=== PATIENT | female | born 1990 | race Caucasian/White ===

== ENCOUNTER 2016-10-20 22:22 | Emergency (ER) | payer BC ==
[2016-10-20] MEDS ORDERED: KETOROLAC 30 MG/ML 1 ML VIAL IM STA (23:35)
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
[2016-10-21 00:54] VITALS: TEMP 98.7
[2016-10-21 01:17] VITALS: BP 103/68; PULSE 69; RESP 20
== END 2016-10-21 01:17 | disposition home or self-care (01) ==
LOC: EC 22:22
DX: R07.89 Other chest pain (principal); Z79.3 Long term (current) use of hormonal contraceptives; V86.59XA Driver of other special all-terrain or other off-road motor vehicle injured in nontraffic accident, initial encounter
CPT/HCPCS: 99284; 96372; 71020; 71120; J1885

== ENCOUNTER → 2018-01-10 | Outpatient (CLI) | payer BC ==
--- NOTE | 2018-01-10 17:29 | ECHOF ---
Referral Reason:R94.31 Abnormal EKG MEASUREMENTS -------- HEIGHT: 170.2 cm WEIGHT: 102.1 kg BP: RVIDd: 2.8 cm (< 3.3) IVSd: 1.0 cm (0.6 - 1.1) LVIDd: 4.4 cm (3.9 - 5.3) LVPWd: 1.0 cm (0.6 - 1.1) IVSs: 1.3 cm LVIDs: 3.4 cm LVPWs: 1.3 cm LAESV Index (A-L): 18.91 ml/m Ao Diam: 2.9 cm (2.0 - 3.7) AV Cusp: 1.8 cm (1.5 - 2.6) LA Diam: 2.7 cm (2.7 - 3.8) MV EXCURSION: 16.095 mm (> 18.000) MV EF SLOPE: 92 mm/s (70 - 150) EPSS: 0.9 cm MV E Jared: 0.91 m/s MV DecT: 211 ms MV A Jared: 0.71 m/s MV E/A Ratio: 1.27 FINDINGS -------- Sinus rhythm. This was a technically good study. The left ventricular size is normal. Left ventricular wall thickness is normal. Overall left vent ricular systolic function is normal with, an EF between 55 - 60 %. The right ventricle is normal in size and function. Normal LA size by volume 22+/-6 ml/m2. The right atrium is normal in size. The aortic valve is trileaflet, and appears structurally normal. No aortic stenosis or regurgitation. The mitral valve is normal. There is trace mitral regurgitation. Trace tricuspid regurgitation present. Right ventricular systolic pressure is normal at < 35 mmHg. There is no evidence of pulmonary hypertension. Trace/mild (physiologic) pulmonic regurgitation. The aortic root size is normal. Normal inferior vena cava with normal inspiratory collapse consistent with estimated right atrial pre ssure of 5 mmHg. There is no pericardial effusion. CONCLUSIONS -------- 1. Sinus rhythm. 2. This was a technically good study. 3. The left ventricular size is normal. 4. Left ventricular wall thickness is normal. 5. Overall left ventricular systolic function is normal with, an EF between 55 - 60 %. 6. Normal LA size by volume 22+/-6 ml/m2. 7. The aortic valve is trileaflet, and appears structurally normal. No aortic stenosis or regurgitati on. 8. There is trace mitral regurgitation. 9. Trace tricuspid regurgitation present. 10. Right ventricular systolic pressure is normal at < 35 mmHg. 11. There is no evidence of pulmonary hypertension. 12. Trace/mild (physiologic) pulmonic regurgitation. 13. The aortic root size is normal. 14. There is no pericardial effusion. ASSISTANT SCIENTIST: Justino Espinosa RDCS
== END | disposition home or self-care (01) ==
LOC: RADECHMAIN 13:12
PROVIDERS: ATTEND Family Medicine
DX: I37.1 Nonrheumatic pulmonary valve insufficiency (principal)
CPT/HCPCS: 93306

== ENCOUNTER 2018-05-26 04:36 | Emergency (ER) | payer BC ==
[2018-05-26 04:44] VITALS: BP 134/77; PULSE 142; RESP 24
[2018-05-26] MEDS: ACETAMINOPHEN TAB 500 MG TAB PO STA (05:20)
--- NOTE | 2018-05-26 05:57 | ED ---
URI HPI - General Chief Complaint: Upper Respiratory Infection Stated Complaint: Sore Throat, Headache Source: patient Mode of arrival: ambulatory Limitations: no limitations - History of Present Illness Initial Comments: Aye is a previously healthy 27-year-old female with history of wheezing for which she's been prescribed nebulized albuterol. Patient reports that she's fe lt some increased wheezing for the past 2 days however last night she developed fevers, chills shaking and just a general feeling like she been had by a truck. Patient was concerned she may have the flu skin the ER for further evaluation. Patient reports she didn't take any breathing treatments prior to arrival. She has not had any antipyretics prior to arrival. She did not receive a flu vacci ne this year. SHe has no known sick contacts but does have a 5-year-old daughter who attends school and does know that multiple people to school been sick her daughter's currently not having any symptoms. - Related Data Home Medications Medication Instructions Recorded Confirmed Ibuprofen [Motrin Ib] 400 - 600 mg PO Q6H PRN 05/26/18 05/26/18 Norethindrone-E.estradiol-Iron 1 tab PO DAILY 05/26/18 05/26/18 [Junel Fe 1.5 mg-30 Mcg Tablet] Allergies Allergy/AdvReac Type Severity Reaction Status Date / Time No Known Allergies Allergy Verified 05/26/18 07:07 Review of Systems ROS Statement: Those systems with pertinent positive or pertinent negative responses have been documented in the HPI. ROS Other: All systems not noted in ROS Statement are negative. Past Medical History Past Medical History: No Reported History History of Any Multi-Drug Resistant Organisms: None Reported Past Surgical History: No Surgical Hx Reported Past Psychological History: No Psychological Hx Reported Smoking Status: Current some day smoker Past Alcohol Use History: None Reported Past Drug Use History: None Reported General Exam - General Exam Comments Initial Comments: Physical Exam GENERAL: Patient is febrile, nontoxic but appears as though she's not feeling well HENT: Normocephalic, Atraumatic. EYES: PERRL, EOMI PULMONARY: Expiratory wheezing in all lung whiting CARDIOVASCULAR: Tachycardic, regular, warm and well perfused extremities ABDOMEN: Soft and nontender with normal bowel sounds. SKIN: Clammy and warm to the touch : Deferred NEUROLOGIC: Patient is alert and oriented x3. Moving all extremities spontaneously MUSCULOSKELETAL: Normal extremities with adequate strength and full range of motion. No lower extremity swelling or edema. No calf tenderness. PSYCHIATRIC: Normal psychiatric evaluation. Limitations: no limitations Limitations: no limitations Course Vital Signs 05/26/18 04:42 Temperature 102.6 F H Pulse Rate 142 H Respiratory 24 Rate Blood Pressure 134/77 O2 Sat by Pulse 95 Oximetry Medical Decision Making - Medical Decision Making She was seen and evaluated history is obtained from the patient History and physical exam are concerning for influenza Influenza swab was positive, labs and IV fluids were ordered due to the patient's febrile tachycardic - Lab Data Result diagrams: 05/26/18 06:02 05/26/18 06:02 Lab Results 05/26/18 05/26/18 05/26/18 Range/Units 05:16 06:02 06:02 WBC 11.2 H (3.8-10.6) k/uL RBC 4.80 (3.80-5.40) m/uL Hgb 12.9 (11.4-16.0) gm/dL Hct 39.2 (34.0-46.0) % MCV 81.6 (80.0-100.0) fL MCH 26.8 (25.0-35.0) pg MCHC 32.8 (31.0-37.0) g/dL RDW 14.2 (11.5-15.5) % Plt Count 256 (150-450) k/uL Neutrophils % 84 % Lymphocytes % 7 % Monocytes % 5 % Eosinophils % 2 % Basophils % 0 % Neutrophils # 9.4 H (1.3-7.7) k/uL Lymphocytes # 0.8 L (1.0-4.8) k/uL Monocytes # 0.6 (0-1.0) k/uL Eosinophils # 0.2 (0-0.7) k/uL Basophils # 0.0 (0-0.2) k/uL Sodium 138 (137-145) mmol/L Potassium 4.2 (3.5-5.1) mmol/L Chloride 109 H (98-107) mmol/L Carbon Dioxide 20 L (22-30) mmol/L Anion Gap 9 mmol/L BUN 11 (7-17) mg/dL Creatinine 0.68 (0.52-1.04) mg/dL Est GFR (CKD-EPI)AfAm >90 (>60 ml/min/1.73 sqM) Est GFR (CKD-EPI)NonAf >90 (>60 ml/min/1.73 sqM) Glucose 100 H (74-99) mg/dL Calcium 8.8 (8.4-10.2) mg/dL Total Bilirubin 0.3 (0.2-1.3) mg/dL AST 18 (14-36) U/L ALT 28 (9-52) U/L Alkaline Phosphatase 79 (38-126) U/L Creatine Kinase 44 (30-135) U/L Total Protein 6.6 (6.3-8.2) g/dL Albumin 3.6 (3.5-5.0) g/dL Influenza Type A RNA Detected H (Not Detectd) Influenza Type B (PCR) Not Detected (Not Detectd) Disposition Clinical Impression: Influenza Disposition: HOME SELF-CARE Condition: Stable Instructions (If sedation given, give patient instructions): Upper Respiratory Infection (ED) Is patient prescribed a controlled substance at d/c from ED?: No Referrals: Armando Perdomo DO [Primary Care Provider] - 1-2 days
[2018-05-26] MEDS: SODIUM CHLORIDE 0.9% 2,000 ML IV ONE (06:01)
[2018-05-26 06:10] LABS: Basophils % (A) 0 %; Eosinophils # (A) 0.2 k/uL (0-0.7); Eosinophils % (A) 2 %; HCT 39.2 % (34.0-46.0); HGB 12.9 gm/dL (11.4-16.0); Lymphocytes # (A) 0.8 k/uL (1.0-4.8); Lymphocytes % (A) 7 %; MCH 26.8 pg (25.0-35.0); MCHC 32.8 g/dL (31.0-37.0); MCV 81.6 fL (80.0-100.0); Mean Platelet Volume 6.2; Monocytes # (A) 0.6 k/uL (0-1.0); Monocytes % (A) 5 %; Neutrophils # (A) 9.4 k/uL (1.3-7.7); Neutrophils % (A) 84 %; Platelet Count 256 k/uL (150-450); RDW 14.2 % (11.5-15.5); WBC 11.2 k/uL (3.8-10.6)
[2018-05-26 06:19] LABS: ALT 28 U/L (9-52); AST 18 U/L (14-36); Albumin 3.6 g/dL (3.5-5.0); Alkaline Phosphatase 79 U/L (38-126); Anion Gap 9 mmol/L; Blood Urea Nitrogen 11 mg/dL (7-17); Calcium 8.8 mg/dL (8.4-10.2); Carbon Dioxide 20 mmol/L (22-30); Chloride 109 mmol/L (98-107); Creatine Kinase 44 U/L (30-135); Glucose 100 mg/dL (74-99); Potassium 4.2 mmol/L (3.5-5.1); Sodium 138 mmol/L (137-145); Total Bilirubin 0.3 mg/dL (0.2-1.3); Total Protein 6.6 g/dL (6.3-8.2)
[2018-05-26] MEDS: IBUPROFEN 400 MG TAB PO STA (06:33)
[2018-05-26 08:17] VITALS: TEMP 98.9
== END 2018-05-26 08:16 | disposition home or self-care (01) ==
LOC: EC 04:36
DX: J11.1 Influenza due to unidentified influenza virus with other respiratory manifestations (principal); R00.0 Tachycardia, unspecified; F17.200 Nicotine dependence, unspecified, uncomplicated; Z79.3 Long term (current) use of hormonal contraceptives
CPT/HCPCS: 36415; 80053; 82550; 85025; 87502; 96360; 96361; 99284

== ENCOUNTER → 2019-12-11 | Outpatient (CLI) | payer BC ==
--- NOTE | 2019-12-11 15:20 | XR ---
EXAMINATION TYPE: XR chest 2V DATE OF EXAM: 12/11/2019 COMPARISON: 10/20/2016 TECHNIQUE: PA and lateral views submitted. HISTORY: Pain FINDINGS: Subsegmental changes are seen along the left lung base and costophrenic angle. Right lung is clear. H eart size normal. No pneumothorax. No overt failure. IMPRESSION: 1. Left lower lobe infiltrate.
== END | disposition home or self-care (01) ==
LOC: RADXRMAIN 14:58
PROVIDERS: ATTEND Family Medicine
DX: R91.8 Other nonspecific abnormal finding of lung field (principal)
CPT/HCPCS: 71046

== ENCOUNTER → 2019-12-13 | Outpatient (CLI) | payer BC | END | disposition home or self-care (01) | LOC: LABWHC1 10:34 | PROVIDERS: ATTEND Family Medicine | DX: Z20.828 Contact with and (suspected) exposure to other viral communicable diseases (principal); R05 Cough; R07.89 Other chest pain; R09.89 Other specified symptoms and signs involving the circulatory and respiratory systems | CPT/HCPCS: U0003; C9803 ==

== ENCOUNTER 2020-09-27 18:18 | Emergency (ER) | payer BC ==
[2020-09-27 18:22] VITALS: TEMP 98
--- NOTE | 2020-09-27 18:39 | ED ---
General Adult HPI - General Chief complaint: Abdominal Pain Stated complaint: Abd Pain Time Seen by Provider: 09/27/20 18:45 Source: patient Mode of arrival: ambulatory Limitations: no limitations - History of Present Illness Initial comments: Patient is a 29-year-old female with past medical history is unremarkable who presents emergency Department complaining of a two-week history of intermittent sharp, achy abdominal pain. She states it is over the right abdomen with radiation about like distribution towards her back. She denies any associated nausea or vomiting. Denies any change in her bowel movements or bowel habits. She states she still passing flatus. She denies any chest pain, shortness of breath, headache, weakness, numbness patulousness is no acute complaints at this time. She states that the abdominal pain is present when she is standing at work. It is not associated with any specific movements. It lasts for a short period time, and is minimally responsive to ibuprofen. She otherwise has no acute point to this time. - Related Data Home Medications Medication Instructions Recorded Confirmed Ibuprofen [Motrin Ib] 400 - 600 mg PO Q6H PRN 05/26/18 09/27/20 Norethindrone-E.estradiol-Iron 1 tab PO HS 05/26/18 09/27/20 [Junel Fe 1.5 mg-30 Mcg Tablet] Allergies Allergy/AdvReac Type Severity Reaction Status Date / Time No Known Allergies Allergy Verified 09/27/20 20:45 Review of Systems ROS Statement: Those systems with pertinent positive or pertinent negative responses have been documented in the HPI. Review of Systems: CONST: Denies fever EYES: Denies blurry vision ENT: Denies nasal congestion C/V: Denies Chest pain RESP: Denies shortness of breath GI: Endorses abdominal pain : Denies dysuria SKIN: Denies rash. MSK: Denies joint pain. NEURO: Denies headache ROS Other: All systems not noted in ROS Statement are negative. Past Medical History Past Medical History: No Reported History History of Any Multi-Drug Resistant Organisms: None Reported Past Surgical History: No Surgical Hx Reported Past Psychological History: No Psychological Hx Reported Smoking Status: Current some day smoker Past Alcohol Use History: Occasional Past Drug Use History: None Reported General Exam - General Exam Comments Initial Comments: General: Appears in no acute distress. HEAD: Normal with no signs of head trauma. EYES: PERRLA, EOMI, conjunctiva normal, no discharge. ENT: Hearing grossly intact, normal oropharynx. RESPIRATORY: Clear breath sounds bilaterally. No wheezes, rales, or rhonchi. C/V: Patient is tachycardic with regular rhythm. S1 and S2 auscultated. No peripheral edema. Peripheral pulses are 2+ intact throughout. Repeat heart rate is normal. Tachycardia resolved. ABD: Abdomen soft, nondistended, nontender to palpation. There is no guarding. There are no peritoneal signs. Patient currently has no tenderness at this time. Patient describes her abdominal pain as a pelvic distribution around to her lower lumbar spine. No CVA tenderness to percussion. EXT: Normal range of motion, no obvious deformity. She does have very mild midline lumbar spine tenderness to palpation. SKIN: No rashes or lesions observed on exposed skin. NEURO: Alert and oriented 4. Limitations: no limitations Course Vital Signs 09/27/20 09/27/20 09/27/20 18:19 19:10 21:38 Temperature 98 F Pulse Rate 120 H 104 H 87 Respiratory 20 16 16 Rate Blood Pressure 158/94 149/102 165/95 O2 Sat by Pulse 98 100 99 Oximetry Medical Decision Making - Medical Decision Making Based on the patient's presentation and physical exam, I'm concerned for acute abdominal process for current symptoms. Differential includes but is not limited to nephrolithiasis, lumbar spine injury, ovarian cyst, appendicitis. We will therefore obtain an abdominal laboratory studies as well as urine studies, assessed her , as well as obtain a CT and pelvis. She'll be symptomatically treated with 1 L fluid bolus. She Kleins pain medications at this time. She was in agreement with this plan. Patient's lab studies are remarkable for a contaminated urinalysis. Patient is not . The remainder of her laboratory studies are unremarkable. CT imaging revealed a normal lumbar spine, as well as a large cystic pelvic mass t hat is probably a complex ovarian cyst. On reevaluation, patient remains symptomatic. We discussed the findings of her imaging as well as her normal laboratory studies. I did recommend that she fol low up with PLATE GRAINER APPRENTICE for her complex ovarian cyst. She was in agreement with this plan. She has her own PLATE GRAINER APPRENTICE but she'll also be provided with contact information for the on-call PLATE GRAINER APPRENTICE. I instructed the patient to follow up with their PCP in the next 3 days. I provided contact information for follow up with Dr. Sammy MEJIA. I explained that the patient should return to the emergency department if they experience any worsening symptoms. Strict return precautions were discussed with the patient. The patient expressed understanding of these instructions. I answered all questions that the patient had. The patient was discharged home in good condition with their prescriptions and follow up information. - Lab Data Result diagrams: 09/27/20 19:08 09/27/20 19:08 Lab Results 09/27/20 09/27/20 09/27/20 Range/Units 19:08 19:08 19:08 WBC 9.3 (3.8-10.6) k/uL RBC 4.72 (3.80-5.40) m/uL Hgb 13.3 (11.4-16.0) gm/dL Hct 40.0 (34.0-46.0) % MCV 84.7 (80.0-100.0) fL MCH 28.3 (25.0-35.0) pg MCHC 33.4 (31.0-37.0) g/dL RDW 13.9 (11.5-15.5) % Plt Count 316 (150-450) k/uL MPV 6.9 Neutrophils % 72 % Lymphocytes % 18 % Monocytes % 5 % Eosinophils % 2 % Basophils % 1 % Neutrophils # 6.7 (1.3-7.7) k/uL Lymphocytes # 1.6 (1.0-4.8) k/uL Monocytes # 0.5 (0-1.0) k/uL Eosinophils # 0.2 (0-0.7) k/uL Basophils # 0.1 (0-0.2) k/uL PT 10.6 (9.0-12.0) sec INR 1.0 (<1.2) APTT 22.3 (22.0-30.0) sec Sodium (137-145) mmol/L Potassium (3.5-5.1) mmol/L Chloride (98-107) mmol/L Carbon Dioxide (22-30) mmol/L Anion Gap mmol/L BUN (7-17) mg/dL Creatinine (0.52-1.04) mg/dL Est GFR (CKD-EPI)AfAm (>60 ml/min/1.73 sqM) Est GFR (CKD-EPI)NonAf (>60 ml/min/1.73 sqM) Glucose (74-99) mg/dL Calcium (8.4-10.2) mg/dL Magnesium (1.6-2.3) mg/dL Total Bilirubin (0.2-1.3) mg/dL AST (14-36) U/L ALT (4-34) U/L Alkaline Phosphatase (38-126) U/L Total Protein (6.3-8.2) g/dL Albumin (3.5-5.0) g/dL Lipase (23-300) U/L Urine Color Yellow Urine Appearance Cloudy H (Clear) Urine pH 6.0 (5.0-8.0) Ur Specific Lyons 1.021 (1.001-1.035) Urine Protein Trace H (Negative) Urine Glucose (UA) Negative (Negative) Urine Ketones Negative (Negative) Urine Blood Negative (Negative) Urine Nitrite Negative (Negative) Urine Bilirubin Negative (Negative) Urine Urobilinogen <2.0 (<2.0) mg/dL Ur Leukocyte Esterase Large H (Negative) Urine RBC 3 (0-5) /hpf Urine WBC 25 H (0-5) /hpf Ur Squamous Epith Cells 12 H (0-4) /hpf Amorphous Sediment Rare H (None) /hpf Urine Bacteria Few H (None) /hpf Hyaline Casts 4 H (0-2) /lpf Urine Mucus Rare H (None) /hpf Urine HCG, Qual (Not Detectd) 09/27/20 09/27/20 Range/Units 19:08 19:08 WBC (3.8-10.6) k/uL RBC (3.80-5.40) m/uL Hgb (11.4-16.0) gm/dL Hct (34.0-46.0) % MCV (80.0-100.0) fL MCH (25.0-35.0) pg MCHC (31.0-37.0) g/dL RDW (11.5-15.5) % Plt Count (150-450) k/uL MPV Neutrophils % % Lymphocytes % % Monocytes % % Eosinophils % % Basophils % % Neutrophils # (1.3-7.7) k/uL Lymphocytes # (1.0-4.8) k/uL Monocytes # (0-1.0) k/uL Eosinophils # (0-0.7) k/uL Basophils # (0-0.2) k/uL PT (9.0-12.0) sec INR (<1.2) APTT (22.0-30.0) sec Sodium 141 (137-145) mmol/L Potassium 3.8 (3.5-5.1) mmol/L Chloride 109 H (98-107) mmol/L Carbon Dioxide 24 (22-30) mmol/L Anion Gap 8 mmol/L BUN 14 (7-17) mg/dL Creatinine 0.78 (0.52-1.04) mg/dL Est GFR (CKD-EPI)AfAm >90 (>60 ml/min/1.73 sqM) Est GFR (CKD-EPI)NonAf >90 (>60 ml/min/1.73 sqM) Glucose 105 H (74-99) mg/dL Calcium 9.5 (8.4-10.2) mg/dL Magnesium 1.9 (1.6-2.3) mg/dL Total Bilirubin 0.2 (0.2-1.3) mg/dL AST 18 (14-36) U/L ALT 14 (4-34) U/L Alkaline Phosphatase 66 (38-126) U/L Total Protein 6.8 (6.3-8.2) g/dL Albumin 4.1 (3.5-5.0) g/dL Lipase 134 (23-300) U/L Urine Color Urine Appearance (Clear) Urine pH (5.0-8.0) Ur Specific Lyons (1.001-1.035) Urine Protein (Negative) Urine Glucose (UA) (Negative) Urine Ketones (Negative) Urine Blood (Negative) Urine Nitrite (Negative) Urine Bilirubin (Negative) Urine Urobilinogen (<2.0) mg/dL Ur Leukocyte Esterase (Negative) Urine RBC (0-5) /hpf Urine WBC (0-5) /hpf Ur Squamous Epith Cells (0-4) /hpf Amorphous Sediment (None) /hpf Urine Bacteria (None) /hpf Hyaline Casts (0-2) /lpf Urine Mucus (None) /hpf Urine HCG, Qual Not Detected (Not Detectd) Disposition Clinical Impression: Ovarian cyst, Abdominal pain Disposition: HOME SELF-CARE Condition: Good Instructions (If sedation given, give patient instructions): Ovarian Cyst (ED) Is patient prescribed a controlled substance at d/c from ED?: No Referrals: Armando Perdomo DO [Primary Care Provider] - 1-2 days Mehreen Christianson DO [Doctor of Osteopathic Medicine] - 1-2 days
[2020-09-27] MEDS ORDERED: SODIUM CHLORIDE 0.9% 1,000 ML IV STA (19:08)
[2020-09-27 19:10] VITALS: RESP 16
[2020-09-27 19:34] LABS: Basophils # (A) 0.1 k/uL (0-0.2); Basophils % (A) 1 %; Eosinophils # (A) 0.2 k/uL (0-0.7); Eosinophils % (A) 2 %; HGB 13.3 gm/dL (11.4-16.0); Lymphocytes # (A) 1.6 k/uL (1.0-4.8); Lymphocytes % (A) 18 %; MCH 28.3 pg (25.0-35.0); MCHC 33.4 g/dL (31.0-37.0); MCV 84.7 fL (80.0-100.0); Mean Platelet Volume 6.9; Monocytes # (A) 0.5 k/uL (0-1.0); Monocytes % (A) 5 %; Neutrophils # (A) 6.7 k/uL (1.3-7.7); Neutrophils % (A) 72 %; Platelet Count 316 k/uL (150-450); RBC 4.72 m/uL (3.80-5.40); RDW 13.9 % (11.5-15.5); WBC 9.3 k/uL (3.8-10.6)
[2020-09-27 19:40] LABS: Amorphous Sediment,Urine Rare /hpf; Appearance,Urine Cloudy (Clear); Bacteria,Urine Few /hpf; Bilirubin,Urine Negative (Negative); Blood,Urine Negative (Negative); Color,Urine Yellow; Glucose,Urine (UA) Negative (Negative); Hyaline Casts,Urine 4 /lpf (0-2); Ketones,Urine Negative (Negative); Leukocyte Esterase,Urine Large (Negative); Mucus,Urine Rare /hpf; Nitrite,Urine Negative (Negative); Protein,Urine Trace (Negative); RBC,Urine 3 /hpf (0-5); Specific Gravity,Urine 1.021 (1.001-1.035); Squamous Epithelial Cell,Urine 12 /hpf (0-4); Urobilinogen,Urine <2.0 mg/dL (<2.0); WBC,Urine 25 /hpf (0-5)
[2020-09-27 19:44] LABS: ALT 14 U/L (4-34); AST 18 U/L (14-36); African American GFR (CKD) >90 (>60 ml/min/1.73 sqM); Albumin 4.1 g/dL (3.5-5.0); Alkaline Phosphatase 66 U/L (38-126); Anion Gap 8 mmol/L; Blood Urea Nitrogen 14 mg/dL (7-17); Calcium 9.5 mg/dL (8.4-10.2); Carbon Dioxide 24 mmol/L (22-30); Chloride 109 mmol/L (98-107); Glucose 105 mg/dL (74-99); Lipase 134 U/L (23-300); Magnesium 1.9 mg/dL (1.6-2.3); Non-African American GFR(CKD) >90 (>60 ml/min/1.73 sqM); Potassium 3.8 mmol/L (3.5-5.1); Sodium 141 mmol/L (137-145); Total Bilirubin 0.2 mg/dL (0.2-1.3); Total Protein 6.8 g/dL (6.3-8.2)
[2020-09-27 19:48] LABS: Partial Thromboplastin Time 22.3 sec (22.0-30.0); Prothrombin Time 10.6 sec (9.0-12.0)
--- NOTE | 2020-09-27 20:34 | CT ---
EXAMINATION TYPE: CT abdomen pelvis wo con DATE OF EXAM: 09/27/2020 COMPARISON: None HISTORY: lower abdominal cramping CT DLP: 1793.4 mGycm Automated exposure control for dose reduction was used. Images obtained from the diaphragm to the floor the pelvis with no contrast. The lung bases are clear. There is no pleural effusion. Heart size is normal. There is no pericardial effusion. Liver spleen stomach pancreas gallbladder appear normal. The bile ducts are not dilated. There is no adrenal mass. Kidneys show normal size and contour. There is no hydronephrosis. The urete rs are not dilated. There is no retroperitoneal adenopathy. Bladder distends smoothly. There is no in guinal hernia. Uterus is anteverted. There is large septated cystic mass in the midline pelvis above the urinary ebony dder. Mass measures 11.5 x 9 cm. This is predominantly low density fluid. Appendix appears normal. There is no mesenteric edema. There is no ascites or free air. There is no b owel obstruction. IMPRESSION: Large cystic pelvic mass is probably complex ovarian cyst. Follow-up is recommended. Normal appendix.
--- NOTE | 2020-09-27 20:38 | CT ---
EXAMINATION TYPE: CT lumbar spine wo con DATE OF EXAM: 09/27/2020 COMPARISON: None HISTORY: lower abdominal cramping CT DLP: 1793.4 mGycm Automated exposure control for dose reduction was used. Images obtained from the level of T12-S3 vertebra with no contrast. Lumbar vertebra have normal alignment. Disc spaces are normal. Posterior elements are intact. There i s no compression fracture. There is no lumbar paraspinal mass. There is no sign of spinal stenosis. T he sacroiliac joints appear intact. IMPRESSION: Normal CT scan of the lumbar spine.
[2020-09-27 21:39] VITALS: BP 165/95; PULSE 87
== END 2020-09-27 21:39 | disposition home or self-care (01) ==
LOC: EC 18:18
DX: N83.209 Unspecified ovarian cyst, unspecified side (principal); F17.200 Nicotine dependence, unspecified, uncomplicated; Z79.1 Long term (current) use of non-steroidal anti-inflammatories (NSAID)
CPT/HCPCS: 36415; 72131; 74176; 80053; 81001; 81025; 83690; 83735; 85025; 85610; 85730; 87086; 96360; 99284

== ENCOUNTER 2020-10-07 10:23 | Day surgery (SDC) | payer BC ==
[2020-10-03 09:36] VITALS: BMI 33.3
--- NOTE | 2020-10-06 12:53 | P.HPOB ---
History of Present Illness H&P Date: 10/06/20 Chief Complaint: Abdominal/pelvic pain; large ovarian cyst This patient is a pleasant 29 yr. old female who presented to my office in followup ER for 2 weeks of abdominal/pelvic pain and CT that demonstrated a large (11.5 x 9 cm) probable right ovarian cystic mass and 3.8 cm left ovarian dermoid. Patient states that her pain has been intermittently severe for about 2 weeks. Mostly on the right side. Has been on OCPs. No previous history of this pain. CA 125 was normal (21). I discussed with patient will now proceed with surgical exploration and removal. Review of Systems Constitutional: Reports as per HPI Genitourinary: Reports pelvic pain Past Medical History Past Medical History: Pneumonia Additional Past Medical History / Comment(s): Hx Pneumonia Jan 2020. History of Any Multi-Drug Resistant Organisms: None Reported Past Surgical History: No Surgical Hx Reported Additional Past Surgical History / Comment(s): [place] teeth extracted. Past Anesthesia/Blood Transfusion Reactions: Previous Problems w/ Anesthesia Additional Past Anesthesia/Blood Transfusion Reaction / Comment(s): Had panic attack when woke up from wisdom teeth surgery. Past Psychological History: Anxiety Smoking Status: Current some day smoker Past Alcohol Use History: Occasional Additional Past Alcohol Use History / Comment(s): Has been smoking on and off since 15 yrs old, socially. Past Drug Use History: None Reported - Past Family History Mother Family Medical History: Cancer Medications and Allergies Home Medications Medication Instructions Recorded Confirmed Type Norethindrone-E.estradiol-Iron 1 tab PO HS 05/26/18 10/03/20 History [Junel Fe 1.5 mg-30 Mcg Tablet] Albuterol Inhaler [Ventolin Hfa 1 - 2 puff INHALATION DIRECTED 10/03/20 10/03/20 History Inhaler] PRN Allergies Allergy/AdvReac Type Severity Reaction Status Date / Time No Known Allergies Allergy Verified 10/03/20 09:24 Exam - OBG Physical Exam Abdomen: bowel sounds normal, diffuse tenderness (Right LUQ), no bruit present, no guarding noted, no hepatomegaly, no splenomegaly, no mass Vulva: both: normal Cervix: no lesion, no discharge Results CT shows 11.5 x 9 cm septated cystic mass in midline (presumably right ovary) and 3.8 cm rounded mass left ovary consistent with dermoid. CA 125 was normal. Assessment and Plan Assessment: This is a pleasant 29 yr old female with acute onset pelvic/abdominal pain and large right ovarian cystic mass, smaller left ovarian dermoid. Plan is exploratory laparotomy with drainage/excision of masses. Possible right or left salpingo-oopherectomy. Patient and I have discussed the surgery and risks: infection, bleeding, possible injury to bowel/bladder/vessels and/or other organs. Plan is preservation of fertility; however patient states ok if this is not possible. All of the patients questions were answered and a written consent obtained. (1) Abdominal pain Status: Acute Code(s): R10.9 - UNSPECIFIED ABDOMINAL PAIN SNOMED Code(s): 63320265 (2) Ovarian cyst Status: Acute Code(s): N83.209 - UNSPECIFIED OVARIAN CYST, UNSPECIFIED SIDE SNOMED Code(s): 89109019
[~2020-10-07 10:23] MED LIST: DEXAMETHASONE SOD PHOSPHATE 4 MG/ML 1 ML VIAL IV ONE; ONDANSETRON 4 MG/2 ML VIAL IVP ONE
[2020-10-07] MEDS: LACTATED RINGERS 1,000 ML IV SCH ×3 (10:53→17:08)
[2020-10-07] MEDS ORDERED: MIDAZOLAM 2 MG/2 ML VIAL IVP ONE ×4 (11:12→11:59)
[2020-10-07] MEDS ORDERED: ROCURONIUM 10 MG/ML (5 ML VIAL) IV ONE (12:23)
[2020-10-07] MEDS ORDERED: HYDROmorphone (PF) 1 MG/ML ONE (12:23)
[2020-10-07] MEDS ORDERED: MORPHINE SULFATE (PF) 0.3 MG/0.3 ML SYR ONE (12:23)
[2020-10-07] MEDS ORDERED: fentaNYL (PF) 50 MCG/ML 2 ML AMP ONE (12:23)
[2020-10-07] MEDS ORDERED: LIDOCAINE 1% INJ 10MG/ML (20 ML MDV) ONE (12:23)
[2020-10-07] MEDS ORDERED: KETOROLAC 15 MG/ML 1 ML VIAL ONE (12:23)
[2020-10-07] MEDS ORDERED: NEOSTIGMINE 1 MG/ML 10 ML VIAL ONE (12:23)
[2020-10-07] MEDS ORDERED: GLYCOPYRROLATE 0.2 MG/ML 2 ML VIAL ONE (12:23)
[2020-10-07] MEDS ORDERED: PROPOFOL 10 MG/ML 20 ML VIAL IV ONE (12:23)
[2020-10-07] MEDS ORDERED: NALOXONE 0.4 MG/ML 1 ML VIAL IV PRN ×2 (12:26→15:18)
[2020-10-07] MEDS ORDERED: NALBUPHINE 10 MG/ML (1 ML AMP) IV PRN (12:26)
[2020-10-07] MEDS ORDERED: LACTATED RINGERS 1,000 ML IV ONE (13:22)
--- NOTE | 2020-10-07 13:35 | P.OP ---
Date of Procedure: 10/07/20 Preoperative Diagnosis: #1: Pelvic abdominal pain. #2: Large right ovarian cyst #3: Left ovarian dermoid cyst Postoperative Diagnosis: #1: Same. #2: Right ovarian torsion Procedure(s) Performed: Exploratory laparotomy with right salpingo-oophorectomy and excision of left ovarian dermoid cyst Anesthesia: DAISY Surgeon: Ta Clarke Power Sewing Machine Operator #1: Mehreen Christianson Estimated Blood Loss (ml): 20 Pathology: other (Right ovary and fallopian tube. Left ovarian dermoid cyst) Indications for Procedure: Please see dictated H&P for intimate details of this patient's admission. Brief summary is a pleasant 29-year-old 1 para 1 female with 2-1/2 weeks history of significant lower abdominal pelvic pain. CAT scan evaluation shows a 11-1/2 cm right ovarian cystic mass and a 3.8 cm left ovarian dermoid cyst. Discussed options with the patient including resection and we elected proceed with exploratory laparotomy possible removal of right or left ovary and excision of the cyst. Patient her stands the surgery and risks and risks of infection, bleeding, possible injury bowel, bladder, vessels, and/or other organs. All the patient's questions are answered written consent obtained. Operative Findings: This patient had a 11-12 cm right ovarian multicystic mass that was torsed 3. She had a proximally 4 cm dermoid of the left ovary. Left tube appeared normal, uterus appeared normal. Appendix appeared normal. Description of Procedure: This patient is taken to the operating room where sling the supine position. She subsequently undergoes general endotracheal anesthesia without incident. With an adequate level of anesthesia she has a Camacho catheter placed to straight drain and abdominal prep and drape. Scalpels taken and a Pfannenstiel skin incision is made. A second scalpel is taken down the fascia and the fascia scored with a knife. Fascial incision extended bilaterally using the Montgomery scissors. Fascia is dissected off the rectus muscle separately. The rectus muscles are the peritoneum identified and entered sharply. Peritoneal incision extended superior and inferior without difficulty. Inspection of the pelvis shows a 11-12 cm multicystic mass of the right ovary this torsed times approximately 3 the tube appears to be involved as well. The left ovary appears normal with the exception of approximately 4 cm dermoid. Uterus appears normal. This time the Gala retractor is placed. Bowels packed up out of the pelvis with wet laparotomy sponge. It is evident that the right tube and ovary is best excised at this time so the decision is to remove them. Curved Heaneys were placed across the pedicle. It is then transected in the tube and ovary are removed intact without any spillage and sent to pathology. With this done the pedicle is secured with 0 Vicryl interrupted stitch 3. Excellent hemostasis is noted. With this done I then turned my attention left ovary and small incision is made with the Bovie cautery on the anti-vascular side of the ovary. I was able to shell out a 2 cm area of sebaceous [place] tissue suspicious for dermoid cyst similarly is another area adjacent to this that is shelled out again about 2 cm. With this done the ovary is oversewed with 3-0 Vicryl. Ex cellent hemostasis is noted. Copious irrigation is done at this time. Final inspection of both adnexa show no evidence of any bleeding. This point the Gala retractor is removed and the sponges removed. All counts are correct 3. The parietal peritoneum was closed using 0 Vicryl running fashion. Rectus muscles reapproximated Vicryl interrupted fashion. Fascia is then closed using 0 PDS. Fascial incision is intact and hemostatic. Subcutaneous tissues and closed using a 3-0 Vicryl. Skin is and closed using lance. All counts are correct 3. There are no complications. Patient is awakened from anesthesia and taken recovery room satisfactory condition.
[2020-10-07] MEDS: HYDROmorphone 0.5 MG/0.5 ML SYRINGE IVP PRN ×2 (13:52→14:04)
[2020-10-07] MEDS ORDERED: diphenhydrAMINE 50 MG/ML 1 ML VIAL IVP ONE (14:24)
[2020-10-07] MEDS ORDERED: ONDANSETRON 4 MG/2 ML VIAL IVP PRN (15:18)
[2020-10-07] MEDS ORDERED: KETOROLAC 15 MG/ML 1 ML VIAL IVP PRN (15:18)
[2020-10-07] MEDS ORDERED: diphenhydrAMINE 25 MG CAP PO PRN (15:18)
[2020-10-07] MEDS ORDERED: ACETAMINOPHEN TAB 500 MG TAB PO PRN (15:18)
[2020-10-07] MEDS ORDERED: METOCLOPRAMIDE 5 MG/ML 2 ML VIAL IVP PRN (15:18)
[2020-10-07] MEDS ORDERED: diphenhydrAMINE 50 MG/ML 1 ML VIAL IVP PRN (15:18)
[2020-10-07] MEDS ORDERED: ZOLPIDEM 5 MG TAB PO PRN (15:18)
[2020-10-07] MEDS: SENNOSIDES-DOCUSATE SODIUM 1 EACH TAB PO SCH (19:30)
--- NOTE | 2020-10-08 06:06 | P.PN ---
Progress Note - Text Progress Note Date: 10/08/20 Patient is resting without new complaints. She was unable to void last night and was straight cathed for 800 mL. Patient is tolerating clear liquids. CBC is pending. Plan today is to advance her diet, encourage urination and ambulation. We will allow the patient to shower. Check a CBC. We'll reevaluate at lunchtime most likely will need to be stay inpatient until tomorrow.
[2020-10-08 06:19] LABS: Basophils % (A) 0 %; Eosinophils # (A) 0.1 k/uL (0-0.7); Eosinophils % (A) 0 %; HCT 35.8 % (34.0-46.0); HGB 11.9 gm/dL (11.4-16.0); Lymphocytes # (A) 2.2 k/uL (1.0-4.8); Lymphocytes % (A) 16 %; MCHC 33.4 g/dL (31.0-37.0); MCV 86.9 fL (80.0-100.0); Mean Platelet Volume 7.2; Monocytes % (A) 7 %; Neutrophils # (A) 10.1 k/uL (1.3-7.7); Neutrophils % (A) 74 %; Platelet Count 265 k/uL (150-450); RBC 4.12 m/uL (3.80-5.40); RDW 13.2 % (11.5-15.5); WBC 13.6 k/uL (3.8-10.6)
--- NOTE | 2020-10-08 06:31 | P.PN ---
Progress Note - Text Progress Note Date: 10/08/20 Pt w/o complaints. Ambulating. Denies weakness or paresthesia. Denies headache. Pruritis treated. Pain controlled. POD#1 s/p ex lap. Doing well.
[2020-10-08 07:50] VITALS: RESP 16
[2020-10-08] MEDS: IBUPROFEN 600 MG TAB PO PRN ×3 (10:54→23:18)
[2020-10-08] MEDS: LACTATED RINGERS 1,000 ML IV SCH (14:31)
[2020-10-08] MEDS: SENNOSIDES-DOCUSATE SODIUM 1 EACH TAB PO SCH ×2 (14:31→19:30)
[2020-10-09] MEDS: IBUPROFEN 600 MG TAB PO PRN (05:42)
--- NOTE | 2020-10-09 06:36 | P.PN ---
Progress Note - Text Progress Note Date: 10/09/20 Postoperative day #2. Patient is resting without new complaints. Vital signs are stable and she is afebrile. Incision is intact and dry. CBC yesterday was fine. Pathology still pending. At this time patient is tolerating regular diet, ambulating, urinating without difficulty. Plan is to discharge home today and follow up with me in 1 week.
--- NOTE | 2020-10-09 06:44 | P.DS ---
Providers Expected date of discharge: 10/09/20 Attending physician: Ta Clarke Primary care physician: Armando Perdomo - Discharge Diagnosis(es) (1) Abdominal pain Current Visit: No Status: Acute (2) Ovarian cyst Current Visit: No Status: Acute Hospital Course: Please see dictated H&P for intimate details of this patient's admission. Brief summary this is a pleasant 29-year-old 1 para 1 female admitted for exploratory laparotomy for bilateral ovarian cysts. Patient went exploratory laparotomy, right salpingo-oophorectomy, and excision of left ovarian dermoid cyst. Please see dictated operative note. Postoperative patient did have transient urinary retention secondary to her Duramorph. This did resolve. Postoperative and 2 patient is ambulating and urinating without difficulty and felt to be stable for discharge home follow up with me in 1 week. Procedures: Exploratory laparotomy, right salpingo-oophorectomy, excision of left ovarian dermoid cyst Patient Condition at Discharge: Good Plan - Discharge Summary Discharge Rx Participant: Yes New Discharge Prescriptions: New Ibuprofen [Motrin] 600 mg PO Q6H PRN #30 tab PRN Reason: Pain oxyCODONE HCL [OxyIR] 5 mg PO Q4HR PRN #18 tab PRN Reason: Pain No Action Norethindrone-E.estradiol-Iron [Junel Fe 1.5 mg-30 Mcg Tablet] 1 tab PO HS Albuterol Inhaler [Ventolin Hfa Inhaler] 1 - 2 puff INHALATION DIRECTED PRN PRN Reason: Shortness Of Breath Discharge Medication List Norethindrone-E.estradiol-Iron [Junel Fe 1.5 mg-30 Mcg Tablet] 1 tab PO HS 05/26/18 [History] Albuterol Inhaler [Ventolin Hfa Inhaler] 1 - 2 puff INHALATION DIRECTED PRN 10/03/20 [History] Ibuprofen [Motrin] 600 mg PO Q6H PRN #30 tab 10/09/20 [Rx] oxyCODONE HCL [OxyIR] 5 mg PO Q4HR PRN #18 tab 10/09/20 [Rx] Follow up Appointment(s)/Referral(s): Ta Clarke MD [STAFF PHYSICIAN] - 1 Week Patient Instructions/Handouts: Exploratory Laparoscopy (DC) Activity/Diet/Wound Care/Special Instructions: No strenuous activity or heavy lifting for 6 weeks. No intercourse or anything per vagina for 6 weeks. Please call if any fever, chills, excessive vaginal bleeding, and/or abdominal pain. Discharge Disposition: HOME SELF-CARE
[2020-10-09 08:25] VITALS: BP 115/75; PULSE 80; TEMP 98.2
== END 2020-10-09 10:30 | disposition home or self-care (01) ==
LOC: OR 10:23 → EDSTATUS 12:00 → 4FBP 14:16 → OR 10-09 10:30
PROVIDERS: ATTEND Obstetrics & Gynecology
DX: N83.201 Unspecified ovarian cyst, right side (principal); R10.2 Pelvic and perineal pain; F41.9 Anxiety disorder, unspecified; Z79.3 Long term (current) use of hormonal contraceptives; F17.210 Nicotine dependence, cigarettes, uncomplicated
CPT/HCPCS: 81025; 86900; 86901; 85025; 86850; 88307; 58661; J2250; J1200; J1100; J2710; J0690; J2405; J2001; J2274; J3010; J1170 ×2; J1885; J2704

== ENCOUNTER 2020-12-13 09:46 | Emergency (ER) | payer BC ==
[2020-12-13] MEDS ORDERED: KETOROLAC 15 MG/ML 1 ML VIAL IVP STA (10:21)
[2020-12-13] MEDS ORDERED: ONDANSETRON 4 MG/2 ML VIAL IVP STA (10:21)
[2020-12-13] MEDS ORDERED: SODIUM CHLORIDE 0.9% 1,000 ML IV STA (10:21)
[2020-12-13 11:34] LABS: Basophils # (A) 0.1 k/uL (0-0.2); Basophils % (A) 0 %; Eosinophils % (A) 0 %; HCT 40.1 % (34.0-46.0); HGB 13.1 gm/dL (11.4-16.0); Lymphocytes # (A) 1.3 k/uL (1.0-4.8); Lymphocytes % (A) 7 %; MCH 28.3 pg (25.0-35.0); MCHC 32.8 g/dL (31.0-37.0); MCV 86.5 fL (80.0-100.0); Mean Platelet Volume 7.5; Monocytes % (A) 5 %; Neutrophils # (A) 15.7 k/uL (1.3-7.7); Neutrophils % (A) 86 %; Platelet Count 247 k/uL (150-450); RBC 4.64 m/uL (3.80-5.40); WBC 18.2 k/uL (3.8-10.6)
[2020-12-13 11:41] LABS: Appearance,Urine Turbid (Clear); Bacteria,Urine Few /hpf; Bilirubin,Urine 1+ (Negative); Blood,Urine Moderate (Negative); Color,Urine Dark Yellow; Glucose,Urine (UA) Trace (Negative); Hyaline Casts,Urine 232 /lpf (0-2); Ketones,Urine 2+ (Negative); Leukocyte Esterase,Urine Large (Negative); Mucus,Urine Many /hpf; Nitrite,Urine Negative (Negative); Protein,Urine 3+ (Negative); RBC,Urine 56 /hpf (0-5); Specific Gravity,Urine 1.024 (1.001-1.035); Squamous Epithelial Cell,Urine 64 /hpf (0-4); WBC,Urine >182 /hpf (0-5)
[2020-12-13 12:00] LABS: ALT 14 U/L (4-34); AST 20 U/L (14-36); African American GFR (CKD) >90 (>60 ml/min/1.73 sqM); Albumin 3.8 g/dL (3.5-5.0); Alkaline Phosphatase 87 U/L (38-126); Amylase 58 U/L (30-110); Anion Gap 10 mmol/L; Blood Urea Nitrogen 8 mg/dL (7-17); Carbon Dioxide 20 mmol/L (22-30); Chloride 106 mmol/L (98-107); Glucose 92 mg/dL (74-99); Lipase 73 U/L (23-300); Non-African American GFR(CKD) >90 (>60 ml/min/1.73 sqM); Potassium 3.6 mmol/L (3.5-5.1); Sodium 136 mmol/L (137-145); Total Bilirubin 0.7 mg/dL (0.2-1.3); Total Protein 6.8 g/dL (6.3-8.2)
[2020-12-13] MEDS ORDERED: cefTRIAXone IN SWFI 1,000 MG/10 ML SYRINGE IVP STA (12:06)
--- NOTE | 2020-12-13 12:22 | ED ---
Abdominal Pain HPI - General Chief Complaint: Abdominal Pain Stated Complaint: abd pain Time Seen by Provider: 12/13/20 10:11 Source: patient, RN notes reviewed Mode of arrival: ambulatory Limitations: no limitations - History of Present Illness Initial Comments: Patient is a 30-year-old female that presents to emergency department complaining of lower abdominal pain. She notes that for the past several days she's been having left flank pain with radiation to her stomach. She denied any history of kidney stones or kidney infections. She notes she does have a history of UTIs. Patient denied any frequency dysuria. She noted that she feels like she has to go but has minimal output. Patient does follow-up with [facility] for ovarian cysts/tumor, patient stated she was told everything looked okay on last visit within the last couple weeks. She denied any other issues or complaints. She was otherwise well-appearing. She denied chest pain shortness of breath headache nausea vomiting diarrhea constipation fever fatigue chills. - Related Data Home Medications Medication Instructions Recorded Confirmed Norethindrone-E.estradiol-Iron 1 tab PO HS 05/26/18 10/03/20 [Junel Fe 1.5 mg-30 Mcg Tablet] Albuterol Inhaler [Ventolin Hfa 1 - 2 puff INHALATION DIRECTED 10/03/20 10/03/20 Inhaler] PRN Previous Rx's Medication Instructions Recorded Ibuprofen [Motrin] 600 mg PO Q6H PRN #30 tab 10/09/20 oxyCODONE HCL [OxyIR] 5 mg PO Q4HR PRN #18 tab 10/09/20 Ciprofloxacin HCl [Cipro] 500 mg PO Q12HR #20 tablet 12/13/20 Allergies Allergy/AdvReac Type Severity Reaction Status Date / Time No Known Allergies Allergy Verified 12/13/20 10:08 Review of Systems ROS Statement: Those systems with pertinent positive or pertinent negative responses have been documented in the HPI. ROS Other: All systems not noted in ROS Statement are negative. Past Medical History Past Medical History: Pneumonia Additional Past Medical History / Comment(s): Hx Pneumonia Jan 2020. History of Any Multi-Drug Resistant Organisms: None Reported Past Surgical History: No Surgical Hx Reported Additional Past Surgical History / Comment(s): [place] teeth extracted. Past Anesthesia/Blood Transfusion Reactions: Previous Problems w/ Anesthesia Additional Past Anesthesia/Blood Transfusion Reaction / Comment(s): Had panic attack when woke up from wisdom teeth surgery. Past Psychological History: Anxiety Smoking Status: Current some day smoker Past Alcohol Use History: None Reported Past Drug Use History: None Reported - Past Family History Mother Family Medical History: Cancer General Exam Limitations: no limitations General appearance: alert, in no apparent distress, obese Head exam: Present: atraumatic, normocephalic, normal inspection Eye exam: Present: normal appearance, PERRL, EOMI. Absent: scleral icterus, con junctival injection, periorbital swelling ENT exam: Present: normal exam, mucous membranes moist Neck exam: Present: normal inspection Respiratory exam: Present: normal lung sounds bilaterally. Absent: respiratory distress, wheezes, rales, rhonchi, stridor Cardiovascular Exam: Present: regular rate, normal rhythm, normal heart sounds. Absent: systolic murmur, diastolic murmur, rubs, gallop, clicks GI/Abdominal exam: Present: soft, normal bowel sounds. Absent: distended, tenderness, guarding, rebound, rigid Extremities exam: Present: normal inspection, full ROM, normal capillary refill. Absent: tenderness, pedal edema, joint swelling, calf tenderness Back exam: Present: normal inspection. Absent: CVA tenderness (R), CVA tenderness (L) Neurological exam: Present: alert, oriented X3 Psychiatric exam: Present: normal affect, normal mood Skin exam: Present: warm, dry, intact, normal color. Absent: rash Course Vital Signs 12/13/20 10:05 Temperature 98.2 F Pulse Rate 107 H Respiratory 16 Rate Blood Pressure 123/75 O2 Sat by Pulse 98 Oximetry Medical Decision Making - Medical Decision Making 30-year-old female complaining of left flank pain with radiation abdomen. Labs, 15 mg of Toradol, 4 mg of Zofran, 1 L normal saline, CT of the abdomen and pelvis ordered. Labs: White blood cells 18.2 CMP unremarkable, urinalysis shows 2+ ketones moderate blood and 56 red blood cells greater than 182 white blood cells and a few bacteria 1 g Rocephin ordered for urinary tract infection. Computed tomography scan shows significant changes to bilateral ovaries and possible pyelonephritis. KUB negative for any acute process. Antibiotics was sent patient's pharmacy. Case discussed with Dr. Adhikari, patient discharge home. - Lab Data Result diagrams: 12/13/20 11:24 12/13/20 11:24 Lab Results 12/13/20 12/13/20 12/13/20 Range/Units 11:24 11:24 11:24 WBC 18.2 H (3.8-10.6) k/uL RBC 4.64 (3.80-5.40) m/uL Hgb 13.1 (11.4-16.0) gm/dL Hct 40.1 (34.0-46.0) % MCV 86.5 (80.0-100.0) fL MCH 28.3 (25.0-35.0) pg MCHC 32.8 (31.0-37.0) g/dL RDW 13.0 (11.5-15.5) % Plt Count 247 (150-450) k/uL MPV 7.5 Neutrophils % 86 % Lymphocytes % 7 % Monocytes % 5 % Eosinophils % 0 % Basophils % 0 % Neutrophils # 15.7 H (1.3-7.7) k/uL Lymphocytes # 1.3 (1.0-4.8) k/uL Monocytes # 1.0 (0-1.0) k/uL Eosinophils # 0.0 (0-0.7) k/uL Basophils # 0.1 (0-0.2) k/uL Sodium (137-145) mmol/L Potassium (3.5-5.1) mmol/L Chloride (98-107) mmol/L Carbon Dioxide (22-30) mmol/L Anion Gap mmol/L BUN (7-17) mg/dL Creatinine (0.52-1.04) mg/dL Est GFR (CKD-EPI)AfAm (>60 ml/min/1.73 sqM) Est GFR (CKD-EPI)NonAf (>60 ml/min/1.73 sqM) Glucose (74-99) mg/dL Calcium (8.4-10.2) mg/dL Total Bilirubin (0.2-1.3) mg/dL AST (14-36) U/L ALT (4-34) U/L Alkaline Phosphatase (38-126) U/L Total Protein (6.3-8.2) g/dL Albumin (3.5-5.0) g/dL Amylase (30-110) U/L Lipase (23-300) U/L Urine Color Dark Yellow Urine Appearance Turbid H (Clear) Urine pH 6.0 (5.0-8.0) Ur Specific [place] 1.024 (1.001-1.035) Urine Protein 3+ H (Negative) Urine Glucose (UA) Trace H (Negative) Urine Ketones 2+ H (Negative) Urine Blood Moderate H (Negative) Urine Nitrite Negative (Negative) Urine Bilirubin 1+ H (Negative) Urine Urobilinogen 2.0 (<2.0) mg/dL Ur Leukocyte Esterase Large H (Negative) Urine RBC 56 H (0-5) /hpf Urine WBC >182 H (0-5) /hpf Urine WBC Clumps Many H (None) /hpf Ur Squamous Epith Cells 64 H (0-4) /hpf Urine Bacteria Few H (None) /hpf Hyaline Casts 232 H (0-2) /lpf Urine Mucus Many H (None) /hpf Urine HCG, Qual Not Detected (Not Detectd) 12/13/20 Range/Units 11:24 WBC (3.8-10.6) k/uL RBC (3.80-5.40) m/uL Hgb (11.4-16.0) gm/dL Hct (34.0-46.0) % MCV (80.0-100.0) fL MCH (25.0-35.0) pg MCHC (31.0-37.0) g/dL RDW (11.5-15.5) % Plt Count (150-450) k/uL MPV Neutrophils % % Lymphocytes % % Monocytes % % Eosinophils % % Basophils % % Neutrophils # (1.3-7.7) k/uL Lymphocytes # (1.0-4.8) k/uL Monocytes # (0-1.0) k/uL Eosinophils # (0-0.7) k/uL Basophils # (0-0.2) k/uL Sodium 136 L (137-145) mmol/L Potassium 3.6 (3.5-5.1) mmol/L Chloride 106 (98-107) mmol/L Carbon Dioxide 20 L (22-30) mmol/L Anion Gap 10 mmol/L BUN 8 (7-17) mg/dL Creatinine 0.87 (0.52-1.04) mg/dL Est GFR (CKD-EPI)AfAm >90 (>60 ml/min/1.73 sqM) Est GFR (CKD-EPI)NonAf >90 (>60 ml/min/1.73 sqM) Glucose 92 (74-99) mg/dL Calcium 9.0 (8.4-10.2) mg/dL Total Bilirubin 0.7 (0.2-1.3) mg/dL AST 20 (14-36) U/L ALT 14 (4-34) U/L Alkaline Phosphatase 87 (38-126) U/L Total Protein 6.8 (6.3-8.2) g/dL Albumin 3.8 (3.5-5.0) g/dL Amylase 58 (30-110) U/L Lipase 73 (23-300) U/L Urine Color Urine Appearance (Clear) Urine pH (5.0-8.0) Ur Specific [place] (1.001-1.035) Urine Protein (Negative) Urine Glucose (UA) (Negative) Urine Ketones (Negative) Urine Blood (Negative) Urine Nitrite (Negative) Urine Bilirubin (Negative) Urine Urobilinogen (<2.0) mg/dL Ur Leukocyte Esterase (Negative) Urine RBC (0-5) /hpf Urine WBC (0-5) /hpf Urine WBC Clumps (None) /hpf Ur Squamous Epith Cells (0-4) /hpf Urine Bacteria (None) /hpf Hyaline Casts (0-2) /lpf Urine Mucus (None) /hpf Urine HCG, Qual (Not Detectd) - Radiology Data Radiology results: report reviewed, image reviewed CT abdomen and pelvis: Surgical treatment both ovaries likely complete resection of the right ovary and multiple septated cystic mass or neoplasm. Likely partial resection of left ovary removing the fat-containing masses enteritis. Focal area of her Zuleika's diminished enhancement lateral upper pole left kidney is suspicious for acute pyelonephritis correlate clinically with urine labs. KUB: Overall nonobstructive bowel gas pattern. No definitive nephrolithiasis. Disposition Clinical Impression: Pyelonephritis, Urinary tract infection Disposition: HOME SELF-CARE Condition: Stable Instructions (If sedation given, give patient instructions): Kidney Infection (ED) Additional Instructions: Please return to the Emergency Department if symptoms worsen or any other concerns. follow-up with primary care 1-2 days. Take antibiotics as prescribed until complete. Can take Tylenol and Motrin as needed for pain control. Is patient prescribed a controlled substance at d/c from ED?: No Referrals: Armando Perdomo DO [Primary Care Provider] - 1-2 days Time of Disposition: 13:23
--- NOTE | 2020-12-13 13:11 | XR ---
EXAMINATION TYPE: XR KUB DATE OF EXAM: 12/13/2020 12:20 PM CLINICAL HISTORY: Left-sided pain TECHNIQUE: Two Upright KUB images of the abdomen are obtained. COMPARISON: CT abdomen and pelvis September 27, 2020 FINDINGS: Scattered gas is seen in non-distended stomach bubble and scattered small bowel loops. Gas and fecal material is seen in non-distended colon. There is no visceromegaly, pneumoperitoneum, or ab normal calcification appreciated. The lung bases are clear and the osseous structures are intact. IMPRESSION: Overall nonobstructive bowel gas pattern. No definitive nephrolithiasis.
--- NOTE | 2020-12-13 13:18 | CT ---
EXAMINATION TYPE: CT abdomen pelvis w con DATE OF EXAM: 12/13/2020 HISTORY: Lt flank pain CT DLP: 1318.7mGycm Automated Exposure Control for Dose Reduction was Utilized. CONTRAST: CT scan of the abdomen and pelvis is performed without oral but with IV Contrast, patient injected wi th 100 mL of Isovue 300. COMPARISON: CT September 27, 2020 FINDINGS: LUNG BASES: Medial left basilar linear scarring and/or atelectasis. LIVER/GB: Tiny dependent gallstones suspected. No surrounding inflammatory change PANCREAS: No significant abnormality is seen. SPLEEN: No significant abnormality is seen. ADRENALS: No significant abnormality is seen. KIDNEYS: Symmetric cortical medullary uptake and excretion without hydronephrosis seen bilaterally. I n the lateral aspect left upper kidney there is heterogeneous area of diminished perfusion coronal im age 68 for reference could reflect focus of acute pyelonephritis as there is mild left-sided surround ing perinephric fluid now identified. BOWEL: No significant abnormality is seen. UTERUS/ADNEXA: Slightly retroflexed uterus projects to the right of midline on current study. Slightl y prominent left ovary and the adnexa axial image 72 redemonstrated with now nonvisualized fat contai yesenia lesion or lesions. The larger septated cystic right ovarian lesion extending superiorly on prior study is not clearly identified. Suspect interval surgical treatment to both ovaries. LYMPH NODES: No greater than 1cm abdominal or pelvic lymph nodes are appreciated. OSSEOUS STRUCTURES: No significant abnormality is seen. OTHER: No significant additional abnormality is seen. IMPRESSION: Interval surgical treatment to both ovaries, likely complete resection of the right ovary and multi septated cystic mass or neoplasm. Likely partial resection of left ovary removing the fat- containing masses or dermoids. Focal area of heterogeneous diminished enhancement lateral upper pole left kidney is suspicious for acute pyelonephritis. Correlate clinically and with urine lab values.
[2020-12-13 13:59] VITALS: BP 139/76; PULSE 79; RESP 18; TEMP 98.5
== END 2020-12-13 13:45 | disposition home or self-care (01) ==
LOC: EC 09:46
DX: N39.0 Urinary tract infection, site not specified (principal); N10 Acute pyelonephritis; F41.9 Anxiety disorder, unspecified; F17.200 Nicotine dependence, unspecified, uncomplicated; Z87.440 Personal history of urinary (tract) infections
CPT/HCPCS: 99284; 96374; 96375 ×2; 96361; 36415; 80053; 82150; 83690; 85025; 81001; 81025; 87086; 74018; 74177; J2405; J0696; J1885; Q9967

== ENCOUNTER 2021-07-15 07:48 | Emergency (ER) | payer BC, OTHER ==
[2021-07-15 07:53] VITALS: RESP 18; TEMP 99.3
[2021-07-15] MEDS ORDERED: IBUPROFEN 600 MG TAB PO STA (08:22)
[2021-07-15] MEDS ORDERED: ACETAMINOPHEN TAB 500 MG TAB PO STA (08:22)
--- NOTE | 2021-07-15 08:50 | XR ---
EXAMINATION TYPE: XR chest 2V DATE OF EXAM: 07/15/2021 COMPARISON: 12/11/2019 INDICATION: Fever cough headache TECHNIQUE: Frontal and lateral views of the chest are obtained. FINDINGS: The heart size is normal. The pulmonary vasculature is normal. The lungs are clear. IMPRESSION: 1. No acute pulmonary process.
--- NOTE | 2021-07-15 09:28 | ED ---
Fever HPI - General Chief Complaint: Fever Stated Complaint: Chills,body aches,fever Time Seen by Provider: 07/15/21 07:54 Source: patient, RN notes reviewed Mode of arrival: ambulatory Limitations: no limitations - History of Present Illness Initial Comments: 30-year-old female presents to emergency department with chief complaint of fever chills body aches, cough. Patient states symptoms have been present for several days. Patient states that she initially just that she had a hangover. Patient states that symptoms are not improving. She states she feels very achy. Patient denies any difficulty breathing no GI symptoms or complaints. - Related Data Home Medications Medication Instructions Recorded Confirmed Norethindrone-E.estradiol-Iron 1 tab PO HS 05/26/18 10/03/20 [Junel Fe 1.5 mg-30 Mcg Tablet] Albuterol Inhaler [Ventolin Hfa 1 - 2 puff INHALATION DIRECTED 10/03/20 10/03/20 Inhaler] PRN Previous Rx's Medication Instructions Recorded Ibuprofen [Motrin] 600 mg PO Q6H PRN #30 tab 10/09/20 oxyCODONE HCL [OxyIR] 5 mg PO Q4HR PRN #18 tab 10/09/20 Ciprofloxacin HCl [Cipro] 500 mg PO Q12HR #20 tablet 12/13/20 Allergies Allergy/AdvReac Type Severity Reaction Status Date / Time No Known Allergies Allergy Verified 07/15/21 07:53 Review of Systems ROS Statement: Those systems with pertinent positive or pertinent negative responses have been documented in the HPI. ROS Other: All systems not noted in ROS Statement are negative. Past Medical History Past Medical History: Pneumonia Additional Past Medical History / Comment(s): Hx Pneumonia Jan 2020. History of Any Multi-Drug Resistant Organisms: None Reported Past Surgical History: No Surgical Hx Reported Additional Past Surgical History / Comment(s): right ovary removed Past Anesthesia/Blood Transfusion Reactions: Previous Problems w/ Anesthesia Additional Past Anesthesia/Blood Transfusion Reaction / Comment(s): Had panic attack when woke up from wisdom teeth surgery. Past Psychological History: Anxiety Smoking Status: Current every day smoker Past Alcohol Use History: Occasional Past Drug Use History: None Reported - Past Family History Mother Family Medical History: Cancer General Exam Limitations: no limitations General appearance: alert, in no apparent distress Head exam: Present: atraumatic, normocephalic, normal inspection Eye exam: Present: normal appearance, PERRL, EOMI. Absent: scleral icterus, conjunctival injection, periorbital swelling ENT exam: Present: normal exam, normal oropharynx, mucous membranes moist Neck exam: Present: normal inspection, full ROM. Absent: tenderness, meningismus, lymphadenopathy Respiratory exam: Present: normal lung sounds bilaterally. Absent: respiratory distress, wheezes, rales, rhonchi, stridor Cardiovascular Exam: Present: normal rhythm, tachycardia, normal heart sounds. Absent: systolic murmur, diastolic murmur, rubs, gallop, clicks GI/Abdominal exam: Present: soft, normal bowel sounds. Absent: distended, tenderness, guarding, rebound, rigid Course Vital Signs 07/15/21 07/15/21 07:49 08:11 Temperature 99.3 F Pulse Rate 123 H Respiratory 18 18 Rate Blood Pressure 144/88 O2 Sat by Pulse 96 Oximetry Medical Decision Making - Medical Decision Making Patient's x-rays unremarkable. Patient has influenza A patient will be discharged in stable condition return parameters were discussed. - Lab Data Lab Results 07/15/21 07/15/21 Range/Units 08:09 08:09 Coronavirus (PCR) Not Detected (Not Detectd) Influenza Type A RNA Detected H (Not Detectd) Influenza Type B (PCR) Not Detected (Not Detectd) Disposition Clinical Impression: Influenza A Disposition: HOME SELF-CARE Condition: Stable Instructions (If sedation given, give patient instructions): Influenza (ED) Additional Instructions: Please return to the Emergency Department if symptoms worsen or any other concerns. Is patient prescribed a controlled substance at d/c from ED?: No Referrals: Armando Perdomo DO [Primary Care Provider] - 1-2 days Time of Disposition: 09:28
[2021-07-15 09:35] VITALS: BP 120/80; PULSE 89
== END 2021-07-15 09:35 | disposition home or self-care (01) ==
LOC: EC 07:48
DX: J10.1 Influenza due to other identified influenza virus with other respiratory manifestations (principal); F17.200 Nicotine dependence, unspecified, uncomplicated; Z20.822 Contact with and (suspected) exposure to COVID-19
CPT/HCPCS: 71046; 87502; 87635; 99283

== ENCOUNTER → 2022-04-12 | Outpatient (CLI) | payer OTHER ==
[2022-04-12 17:23] LABS: T4, Free (Free Thyroxine) 0.97 ng/dL (0.78-2.19)
== END | disposition home or self-care (01) ==
LOC: LAB 14:28
PROVIDERS: ATTEND Ophthalmology
DX: H05.20 Unspecified exophthalmos (principal)
CPT/HCPCS: 84439; 84443; 84481

== ENCOUNTER → 2022-04-12 | Outpatient (CLI) | payer OTHER ==
--- NOTE | 2022-04-12 14:47 | MR ---
EXAMINATION TYPE: MR brain wo/w con DATE OF EXAM: 04/12/2022 COMPARISON: NONE HISTORY: Headaches, eyes watering TECHNIQUE: Multiplanar, multisequence images of the brain and brainstem is performed without and with IV contras t, utilizing 10 mL intravenous Gadavist . FINDINGS: Diffusion weighted images demonstrate no evidence of a recent infarct or other diffusion ab normality. There is no extra-axial fluid collection or significant white matter signal abnormality. The ventricular system and cisternal spaces are normal in size and appearance. The brain volume is age appropriate. Midline structures demonstrate partially empty sella morphology. Suprasellar cistern is maintained. The craniocervical junction appears within normal limits. Post contrast images demonstrate no abnorm al enhancement. The dural venous sinuses appear patent. Asymmetric diminished size or caliber to the draining left sagittal sinus incidentally noted. Nasal septum slightly deviated to left of midline. T he visualized sinuses are clear and the globes are intact. IMPRESSION: No significant white matter changes. No suspicious enhancement is seen. Partially empty s irene morphology otherwise unremarkable study.
== END | disposition home or self-care (01) ==
LOC: RADMRIMAIN 13:29
PROVIDERS: ATTEND Ophthalmology
DX: H46.03 Optic papillitis, bilateral (principal); G44.219 Episodic tension-type headache, not intractable
CPT/HCPCS: 70553; A9585

== ENCOUNTER → 2024-06-02 | Outpatient (CLI) | payer OTHER ==
--- NOTE | 2024-06-02 10:34 | MR ---
EXAMINATION TYPE: MR angio head wo con DATE OF EXAM: 06/02/2024 COMPARISON: Prior MRI brain without and with contrast April 12, 2022 HISTORY: Pseudotumor cerebri. Family history of aneurysm. TECHNIQUE: Time of flight images focusing on the [place] were performed without contrast.. 2-D and 3-D postprocessing imaging is performed on an independent workstation. FINDINGS: Vertebral arteries are codominant and patent to the basilar junction. Patent bilateral post erior communicating arteries are seen. There is hypoplastic left P1 segment with filling of the left P2 segment due to patent left-sided posterior communicating artery. No large vessel occlusion or aneu rysm in the posterior circulation. Images of the anterior circulation show patent anterior communicating artery. No large vessel occlusi on or aneurysm is identified. IMPRESSION: No aneurysm at the level of the [place] of [place]. [facility], , 06/02/2024 10:32 AM
--- NOTE | 2024-06-02 11:02 | MR ---
EXAMINATION TYPE: MR brain wo con DATE OF EXAM: 06/02/2024 COMPARISON: Prior MRI brain April 12, 2022 HISTORY: Headaches TECHNIQUE: Multiplanar, multisequence imaging of the brain and brainstem is performed without IV cont rast. FINDINGS: Diffusion weighted images demonstrate no evidence of a recent infarct or other diffusion abnormality. There is no extraaxial fluid collection or significant white matter signal abnormality. The ventricu lar system and cisternal spaces are normal in size and appearance. The brain volume is age appropria te. Midline structures redemonstrates partially empty sella morphology. The craniocervical junction appe ars within normal limits. Normal vascular flow voids are present. The visualized sinuses are clear an d the globes are intact. Nasal septum remains deviated to left of midline. IMPRESSION: No suspicious new or acute finding to account for patient's symptoms. No significant jarrett ge from prior MRI. [facility], , 06/02/2024 11:00 AM
== END | disposition home or self-care (01) ==
LOC: RADMRIMAIN 09:51
PROVIDERS: ATTEND Psychiatry & Neurology Neurology
DX: G93.2 Benign intracranial hypertension (principal); J34.2 Deviated nasal septum; Z82.49 Family history of ischemic heart disease and other diseases of the circulatory system
CPT/HCPCS: 70544; 70551